=== PATIENT | male | born 1980 | race Caucasian/White ===

== ENCOUNTER 2019-08-27 00:40 | Day surgery (SDC) | payer MEDICARE, MEDICAID, SELFPAY ==
[2019-07-09 11:10] VITALS: BMI 31.4
[2019-08-24 15:42] VITALS: BMI 34.5
[2019-08-27 09:31] VITALS: BP 135/85; PULSE 60; RESP 18; TEMP 36.4; O2SAT 97
[2019-08-27] MEDS: LACTATED RINGERS 1,000 ML 150 ML IV CONT (09:49)
--- NOTE | 2019-08-27 09:57 | PM.IMHP ---
H&P: HPI History of Present Illness Chief complaint: Esophagitis Narrative: Erik Garvey is a 39 year old male presents for repeat EGD. He had EGD at [facility] 02/28/2020 and was found to have erosive esophagitis. He has been on PPI BID. He denies any acid reflux, heartburn, nausea, vomiting, dysphagia, or odynophagia. Denies any diarrhea, constipation, melena, hematochezia, abdominal pains or rectal pains. Denies abnormal weight loss, fever or chills. Denies family hx of GI maligancies. Review of Systems Review of Systems: All systems reviewed & are unremarkable except as noted in HPI and below [facility] Past Medical History Medical History (Updated 08/27/19 @ 10:02 by Heather Cruz, MUSSEL FARMER) Asthma Bed bug bite Bipolar 1 disorder Erosive esophagitis GERD (gastroesophageal reflux disease) Obesity Seizure Surgical History Surgical History (Updated 08/27/19 @ 10:02 by Heather Cruz, MUSSEL FARMER) Hx of esophagogastroduodenoscopy Family History Family History (Updated 08/27/19 @ 10:03 by Heather Cruz, MUSSEL FARMER) Unknown Malignant neoplasm of prostate Other Diabetes mellitus Sibling Diabetes mellitus Social History Social History (Updated 08/27/19 @ 10:05 by Heather Cruz, MUSSEL FARMER) Smoking packs per day: 1 Smoking cigarettes per day: 20.0 Years smoked: 23 Smoking pack-years: 23.00 Smoking status: Current every day smoker Tobacco type: cigarettes Alcohol intake: never Substance use: never Meds Home Medications and Allergies Home Medications Medication Instructions Recorded Confirmed Type albuterol sulfate 2 puff INHALATION BID-TID 07/09/19 07/09/19 History citalopram 40 mg PO DAILY 07/09/19 07/09/19 History clonazepam 1 mg PO BID 07/09/19 07/09/19 History fluticasone propion-salmeterol 1 puff INHALATION DAILY 07/09/19 07/09/19 History [Advair HFA] levetiracetam 500 mg PO BID 07/09/19 07/09/19 History omeprazole 40 mg PO BID 07/09/19 07/09/19 History trazodone 100 mg PO HS 07/09/19 07/09/19 History umeclidinium [Incruse Ellipta] 1 inh INHALATION PRN PRN 07/09/19 07/09/19 History risperidone 2 mg PO DAILY 08/24/19 08/24/19 History Allergies Allergy/AdvReac Type Severity Reaction Status Date / Time No Known Allergies Allergy Verified 08/27/19 09:29 Vital Signs Vital Signs - 24 hr 08/27/19 09:31 Temperature 36.4 C Pulse Rate 60 Respiratory Rate 18 Blood Pressure 135/85 Pulse Oximetry 97 Exam Const: General: cooperative, healthy appearing, comfortable, alert, awake and poor hygiene Nutritional Appearance: obese and overweight Orientation/consciousness: oriented to person, oriented to place, oriented to time and patient oriented x3 Limitations: no limitations HENMT: Head: normal to inspection and normocephalic Mouth: Yes Normal oral and palatal mucosa present and Yes moist mucous membranes Neck: Neck: normal visual inspection, supple and no JVD Carotids: no bruits Resp: Effort & Inspection: no respiratory distress Auscultation: wheezes and diminished lung sounds Cardio: Rate: regular rate Rhythm: regular rhythm Heart sounds: S1 normal heart sound present, S2 normal heart sound present, no gallops, no murmurs and no rubs GI: Inspection: normal to inspection and obesity GI Palp: No abdominal tenderness and No No hepatosplenomegaly present Percussion: Yes normal to percussion Auscultation: normal bowel sounds Rectal Exam: deferred Skin: General skin exam: normal color Lesions: no lesions and lesion noted (numerous lesions noted to bilateral lower extremities. ) Rashes: no rashes Neuro: General: oriented to person, oriented to place, oriented to time, patient oriented x3 and moves all extremities Cognition (Neuro): normal cognition Speech: normal speech Gait exam (Neuro): Normal gait present Extrem: General: normal to inspection Psych: Appearance: grossly normal Mental Status: mental status grossly normal Speech and movement: Normal speech and m
--- NOTE | 2019-08-27 10:25 | P.PNAN_ITS ---
Anes - Initial Pre Proc Eval Procedure: Operation Date: 08/27/19 10:30 Proposed Procedures p Esophagogastroduodenoscopy - Benito Moncada DO Date/Time: 08/27/19 10:25 Surgeon: Benito Moncada DO Pre Op Diagnosis: Esophagitis Patient Data Age: 39 Gender: M Height: 5 ft 7 in Weight: 110.5 kg Last Vital Signs Temp 97.6 F 08/27/19 09:31 Pulse 60 08/27/19 09:31 Resp 18 08/27/19 09:31 BP 135/85 08/27/19 09:31 Pulse Ox 97 08/27/19 09:31 Allergies Allergy/AdvReac Type Severity Reaction Status Date / Time No Known Allergies Allergy Verified 08/27/19 09:29 Home Medications Medication Instructions Recorded Confirmed Type albuterol sulfate 2 puff INHALATION BID-TID 07/09/19 07/09/19 History citalopram 40 mg PO DAILY 07/09/19 07/09/19 History clonazepam 1 mg PO BID 07/09/19 07/09/19 History fluticasone propion-salmeterol 1 puff INHALATION DAILY 07/09/19 07/09/19 History [Advair HFA] levetiracetam 500 mg PO BID 07/09/19 07/09/19 History omeprazole 40 mg PO BID 07/09/19 07/09/19 History trazodone 100 mg PO HS 07/09/19 07/09/19 History umeclidinium [Incruse Ellipta] 1 inh INHALATION PRN PRN 07/09/19 07/09/19 History risperidone 2 mg PO DAILY 08/24/19 08/24/19 History Patient hx anesthesia problems: none Family hx anesthesia problems: none PMFSH Past Medical History Medical History (Updated 08/27/19 @ 10:02 by Heather Cruz, ENTERPRISE APPLICATION DEVELOPER) Asthma Bed bug bite Bipolar 1 disorder Erosive esophagitis GERD (gastroesophageal reflux disease) Obesity Seizure Surgical History Surgical History (Updated 08/27/19 @ 10:02 by Heather Cruz, ENTERPRISE APPLICATION DEVELOPER) Hx of esophagogastroduodenoscopy Family History Family History (Updated 08/27/19 @ 10:03 by Heather Cruz, ENTERPRISE APPLICATION DEVELOPER) Unknown Malignant neoplasm of prostate Other Diabetes mellitus Sibling Diabetes mellitus Social History Social History (Updated 08/27/19 @ 10:05 by Heather Cruz, ENTERPRISE APPLICATION DEVELOPER) Smoking packs per day: 1 Smoking cigarettes per day: 20.0 Years smoked: 23 Smoking pack-years: 23.00 Smoking status: Current every day smoker Tobacco type: cigarettes Alcohol intake: never Substance use: never Anes - Eval Final PreProcedure Day of Procedure 08/27/19 10:25 Patient weight: obese Heart: regular rate and rhythm Lungs: clear to auscultation Airway: Mallampati scale class III Neurological: alert and oriented Last oral intake: >/= 8 hours ASA classification: III Emergent: no Anesthetic plan: proceed Anesthesia type and monitoring: general GIVS and standard monitoring Informed Consent: The patient's anesthetic plan and its attendant risks and benefits were discussed with the patient/family/POA. Questions were solicited and answers provided to the satisfaction of the patient/family/POA.
[2019-08-27 10:58] VITALS: BP 117/64; PULSE 76; RESP 20; O2SAT 93
[2019-08-27 11:08] VITALS: BP 114/71; PULSE 70; RESP 20; O2SAT 94
[2019-08-27 11:18] VITALS: BP 122/84; PULSE 64; RESP 18; O2SAT 96
== END 2019-08-27 11:35 | disposition home or self-care (01) ==
PROVIDERS: PCP Family Medicine; Visit Provider Internal Medicine Gastroenterology
PROC: 0DJ08ZZ Inspection of Upper Intestinal Tract, Via Natural or Artificial Opening Endoscopic (ICD-10-PCS; CPT 43235; principal; 2019-08-27 10:30)
DX: K21.0 Gastro-esophageal reflux disease with esophagitis (principal); B37.81 Candidal esophagitis; K44.9 Diaphragmatic hernia without obstruction or gangrene; J45.909 Unspecified asthma, uncomplicated; G40.909 Epilepsy, unspecified, not intractable, without status epilepticus; F31.9 Bipolar disorder, unspecified; E66.9 Obesity, unspecified; Z68.38 Body mass index [BMI] 38.0-38.9, adult; F17.210 Nicotine dependence, cigarettes, uncomplicated
CPT/HCPCS: 43239; 88305; J2704; J7120

== ENCOUNTER 2020-10-06 17:03 | Outpatient (CLI) | payer MEDICARE, MEDICAID, SELFPAY ==
--- NOTE | 2020-10-06 17:20 | ECG_ITS ---
Measurements Intervals [place] Rate: 95 P: 37 NM: 129 QRS: 75 QRSD: 95 T: 28 QT: 352 QTc: 443 Interpretive Statements SINUS RHYTHM DELAYED PRECORDIAL R/S TRANSITION MINIMAL Q WAVES- INFERIOR LEADS BORDERLINE T WAVE ABNORMALITY- INFERIOR LEADS BASELINE ARTIFACT- I, II, III, AVF, V6 BORDERLINE ECG Electronically Signed On 10-06-2020 18:00:56 CDT by Erick Tony D.O.
[2020-10-06 17:35] LABS: Hematocrit 43.8 % (40.0-54.0); Hemoglobin 14.8 g/dL (14.0-18.0); Immature Platelet Fraction Pct 15.7 % (1.0-7.0); Mean Corpuscular HGB Conc 33.8 g/dL (32.0-36.0); Mean Corpuscular Hemoglobin 28.2 pg (27.0-31.0); Mean Corpuscular Volume 83.4 fL (78.0-102.0); Mean Platelet Volume 13.3 fl (8.7-11.0); Platelet Count Result 201 K/mm3 (150-420); Red Blood Count 5.25 M/mm3 (4.70-6.10); Red Cell Distribution Width 13.1 % (11.6-14.4); White Blood Count 10.9 K/mm3 (4.8-10.8)
[2020-10-06 17:40] LABS: Hemoglobin A1C 5.3 % (<5.7)
[2020-10-06 17:45] LABS: Alanine Aminotransferase 22 U/L (16-63); Albumin Level 3.7 g/dL (3.4-5.0); Alkaline Phosphatase 113 U/L (46-116); Anion Gap 10 mmol/L (8-16); Aspartate Amino Transferase 12 U/L (15-37); Bilirubin,Total 0.4 mg/dL (0.00-1.00); Blood Urea Nitrogen 6 mg/dL (7-18); Calcium 8.8 mg/dL (8.5-10.1); Carbon Dioxide 27 mmol/L (21-32); Chloride 101 mmol/L (98-108); Cholesterol 171 mg/dL (0-200); Estimated Glomerular Filt Rate > 60; Glucose 110 mg/dL (70-99); HDL Direct 38 mg/dL (40-60); LDL Cholesterol Calculated 99 mg/dL (<130); Osmolality Calculated 284 mOsm/kg (285-295); Potassium 4.1 mmol/L (3.5-5.1); Sodium 138 mmol/L (136-145); Total Protein 7.5 g/dL (6.4-8.2); Triglycerides 171 mg/dL (0-150)
[2020-10-06 18:23] LABS: Total Cells Counted 100
[2020-10-06 18:24] LABS: Eosinophils Absolute Manual 1.09 K/mm3 (0.02-0.5); Eosinophils Percent Manual 10 % (1-6); Lymphocytes Percent Manual 23 % (18-44); Monocytes Absolute Manual 0.43 K/mm3 (0.1-0.90); Monocytes Percent Manual 4 % (3-9); Neutrophils Percent Manual 63 % (46-73)
[2020-10-06 18:27] LABS: Platelet Estimate Adequate (Adequate)
== END 2020-10-06 17:04 | disposition home or self-care (01) ==
LOC: CHSLAB 17:07
PROVIDERS: PCP Family Medicine; Visit Provider Psychiatry & Neurology Psychiatry
DX: Z79.899 Other long term (current) drug therapy (principal)
CPT/HCPCS: 36415; 80053; 80061; 83036; 85025; 85055; 93005

== ENCOUNTER 2021-09-14 16:58 | Outpatient (CLI) | payer MEDICARE, MEDICAID, SELFPAY ==
--- NOTE | ~2021-09-14 | XR_ITS ---
XR chest 2V 09/14/2021 17:50 Indication: Right-sided chest pain for 3 days Procedure: PA and lateral views of the chest Comparison: 03/18/2018 Findings: Right perihilar and basilar airspace disease. Small right pleural effusion. There is a hiat al hernia. Heart size normal. Left lung clear. There is a possible mass in the lower lung posteriorly on the lateral view overlying the spine. Alternatively this could represent loculated effusion. Impression: 1: Right perihilar and basilar airspace disease, suspicious for pneumonia. 2: Possible lower thoracic mass posteriorly seen on lateral view only. Recommend correlation with est CT. 3: Large hiatal hernia. Reviewed, dictated and finalized at location A. ICATIONS SALES CONSULTANT Impression: 1: Right perihilar and basilar airspace disease, suspicious for pneumonia. 2: Possible lower thoracic mass posteriorly seen on lateral view only. Recomme nd correlation with chest CT. 3: Large hiatal hernia.
[2021-09-14 17:16] LABS: Hematocrit 36.5 % (40.0-54.0); Immature Platelet Fraction Pct 5.9 % (1.0-7.0); Mean Corpuscular HGB Conc 32.9 g/dL (32.0-36.0); Mean Corpuscular Hemoglobin 27.3 pg (27.0-31.0); Platelet Count Result 400 K/mm3 (150-420); Red Cell Distribution Width 13.7 % (11.6-14.4)
[2021-09-14 17:26] LABS: White Blood Count 23.5 K/mm3 (4.8-10.8)
[2021-09-14 17:29] LABS: Alanine Aminotransferase 20 U/L (16-63); Albumin Level 2.4 g/dL (3.4-5.0); Alkaline Phosphatase 175 U/L (46-116); Anion Gap 13 mmol/L (8-16); Aspartate Amino Transferase 13 U/L (15-37); Bilirubin,Total 0.5 mg/dL (0.00-1.00); Blood Urea Nitrogen 5 mg/dL (7-18); Calcium 8.6 mg/dL (8.5-10.1); Carbon Dioxide 26 mmol/L (21-32); Chloride 99 mmol/L (98-108); Estimated Glomerular Filt Rate > 60; Glucose 97 mg/dL (70-99); Osmolality Calculated 283 mOsm/kg (285-295); Potassium 3.2 mmol/L (3.5-5.1); Sodium 138 mmol/L (136-145); Total Protein 7.8 g/dL (6.4-8.2)
[2021-09-14 17:46] LABS: Band Neutrophils Percent 0 % (0-6); Basophils Percent Manual 0 % (0-1); Eosinophils Absolute Manual 0.47 K/mm3 (0.02-0.5); Eosinophils Percent Manual 2 % (1-6); Lymphocytes Absolute Manual 1.17 K/mm3 (1.1-4.5); Lymphocytes Percent Manual 5 % (18-44); Monocytes Absolute Manual 0.47 K/mm3 (0.1-0.90); Monocytes Percent Manual 2 % (3-9); Neutrophils Absolute Manual 21.38 K/mm3 (1.3-6.7); Neutrophils Percent Manual 91 % (46-73); Platelet Estimate Adequate (Adequate); Total Cells Counted 100
== END 2021-09-14 16:59 | disposition home or self-care (01) ==
LOC: CHSLAB 17:03
PROVIDERS: PCP Family Medicine; Visit Provider Family Medicine
DX: R07.9 Chest pain, unspecified (principal)
CPT/HCPCS: 36415; 71046; 80053; 85025; 85055

== ENCOUNTER 2021-09-15 14:13 | Emergency (ER) | payer MEDICARE, MEDICAID, SELFPAY ==
--- NOTE | ~2021-09-15 | CT_ITS ---
EXAMINATION: CT abdomen pelvis w con DATE: 09/15/2021 16:21 INDICATION: Right abdominal pain. TECHNIQUE: Computed tomography (CT) of the abdomen and pelvis was performed with 100 mL Omnipaque 350 intravenous contrast. Automated exposure control and iterative reconstruction technique were employe d. The dose-length product was 1483.12 mGy-cm. COMPARISON: Chest CT 09/03/2018 FINDINGS: The visualized portions of the lung bases demonstrate a thick-walled cavitary 4.4 x 3.7 cm mass in right lung lower lobe with air/fluid level. There is a moderate-sized loculated right pleural effusion. The heart size is normal. There is a small pericardial effusion. There is a large sliding hiatal hernia. There is mild periesophageal lymphadenopathy. The liver and spleen are normal. There i s a gallstone in the gallbladder, which is normal in size. The pancreas, adrenal glands, and kidneys are normal. There is diverticulosis of the colon without evidence of diverticulitis. The appendix is normal. There are no pathologically enlarged lymph nodes. There is no free intraperitoneal fluid. The re are chronic bilateral L5 pars defects. There is 7 mm anterolisthesis of L5 on S1. IMPRESSION: 1. Cavitary mass in right lung lower lobe, most likely an abscess. Malignancy cannot be excluded. 2. Moderate-sized loculated right pleural effusion. 3. Mild paraesophageal lymphadenopathy. 4. Large sliding hiatal hernia. Reviewed, dictated and finalized at location A. CE EXECUTIVE IMPRESSION: 1. Cavitary mass in right lung lower lobe, most likely an abscess. Malignancy c annot be excluded. 2. Moderate-sized loculated right pleural effusion. 3. Mild paraesophageal lymphadenopathy. 4. Large sliding hiatal hernia.
[2021-09-15 14:45] VITALS: BP 111/69; PULSE 116; RESP 20; O2SAT 94
--- NOTE | 2021-09-15 15:14 | ECG_ITS ---
Measurements Intervals [place] Rate: 115 P: -1 VA: 120 QRS: 84 QRSD: 85 T: 21 QT: 349 QTc: 484 Interpretive Statements SINUS TACHYCARDIA NONSPECIFIC T-WAVE ABNORMALITY ABNORMAL RHYTHM ECG COMPARED TO ECG 10/06/2020 17:22:28 [address]CARDIA NOW PRESENT ST (T WAVE) DEVIATION NOW PRESENT Electronically Signed On 09-15-2021 16:05:40 VIDEO GAME CREATOR by Gilbert Granger M.D.
[2021-09-15 15:38] LABS: Hematocrit 35.6 % (40.0-54.0); Immature Platelet Fraction Pct 6.3 % (1.0-7.0); Mean Corpuscular HGB Conc 33.7 g/dL (32.0-36.0); Mean Corpuscular Hemoglobin 27.8 pg (27.0-31.0); Mean Corpuscular Volume 82.4 fL (78.0-102.0); Platelet Count Result 443 K/mm3 (150-420); Red Blood Count 4.32 M/mm3 (4.70-6.10); Red Cell Distribution Width 13.7 % (11.6-14.4)
[2021-09-15 15:39] LABS: White Blood Count 46.2 K/mm3 (4.8-10.8)
[2021-09-15 15:51] LABS: INR 1.3
[2021-09-15 15:54] LABS: Alanine Aminotransferase 17 U/L (16-63); Albumin Level 2.1 g/dL (3.4-5.0); Alkaline Phosphatase 148 U/L (46-116); Anion Gap 13 mmol/L (8-16); Aspartate Amino Transferase 12 U/L (15-37); Bilirubin,Total 0.7 mg/dL (0.00-1.00); Blood Urea Nitrogen 11 mg/dL (7-18); Calcium 8.3 mg/dL (8.5-10.1); Carbon Dioxide 27 mmol/L (21-32); Chloride 93 mmol/L (98-108); Estimated CRCL calculation 57 ml/min; Estimated Glomerular Filt Rate 40; Glucose 106 mg/dL (70-99); Lipase 24 U/L (73-393); Osmolality Calculated 275 mOsm/kg (285-295); Potassium 3.2 mmol/L (3.5-5.1); Sodium 133 mmol/L (136-145); Total Protein 7.1 g/dL (6.4-8.2)
[2021-09-15] MEDS: ALBUTEROL SULFATE (*SP) INHALER 2 PUFF INHALATION (15:55)
[2021-09-15 15:56] VITALS: PULSE 116; RESP 20; O2SAT 20
[2021-09-15 15:58] LABS: Band Neutrophils Percent 3 % (0-6); Basophils Percent Manual 0 % (0-1); Eosinophils Absolute Manual 0.92 K/mm3 (0.02-0.5); Eosinophils Percent Manual 2 % (1-6); Lymphocytes Absolute Manual 1.84 K/mm3 (1.1-4.5); Lymphocytes Percent Manual 4 % (18-44); Metamyelocytes Percent 1 %; Monocytes Absolute Manual 0.92 K/mm3 (0.1-0.90); Monocytes Percent Manual 2 % (3-9); Myelocytes Percent 1 %; Neutrophils Absolute Manual 41.58 K/mm3 (1.3-6.7); Neutrophils Percent Manual 87 % (46-73); Platelet Estimate Adequate (Adequate); Total Cells Counted 100
[2021-09-15] MEDS: fentaNYL CITRATE INJ (*CRX) 100 MCG/2 ML VIAL 50 MCG IV PUSH (15:58)
[2021-09-15] MEDS: SODIUM CHLORIDE 0.9% IV 500 ML 125 ML IV CONT (15:59)
[2021-09-15] MEDS: ONDANSETRON INJ 4 MG/2 ML VIAL IV PUSH (15:59)
[2021-09-15] MEDS: PANTOPRAZOLE SODIUM IV 40 MG VIAL IV PUSH (16:00)
[2021-09-15 16:02] LABS: Lactic Acid Reflex 2.4 mmol/L (0.4-2.0)
[2021-09-15 16:12] LABS: Influenza A QL RT-PCR Negative (Negative); Influenza B QL RT-PCR Negative (Negative); SARS-CoV-2 RNA PCR Negative (Negative)
--- NOTE | 2021-09-15 16:56 | ED.ABDPAIN ---
HPI - Abdominal Pain General Chief Complaint: Abdominal Pain Stated Complaint: Side pain/ Shoulder pain Time Seen by Provider: 09/15/21 14:15 Source: patient, family and RN notes reviewed Mode of arrival: ambulatory Limitations: no limitations History of Present Illness MD elicited complaint: abdominal pain and other (mild chronic wheezing ) Onset (ago): day(s) (2) Pain Consistency: constant Location: RUQ Severity: mild Pain scale (0-10): 4 Quality: aching and dull Radiation: none Migration to: no migration Exacerbating factors: nothing Relieving factors: nothing Treatments prior to arrival: other (none.) Related Data Home Medications Medication Instructions Recorded Confirmed albuterol sulfate 2 puff INHALATION BID-TID 07/09/19 09/15/21 citalopram 40 mg PO DAILY 07/09/19 09/15/21 clonazepam 1 mg PO BID 07/09/19 09/15/21 fluticasone propion-salmeterol 1 puff INHALATION DAILY 07/09/19 09/15/21 [Advair HFA] levetiracetam 500 mg PO BID 07/09/19 09/15/21 omeprazole 40 mg PO BID 07/09/19 09/15/21 trazodone 100 mg PO HS 07/09/19 09/15/21 umeclidinium [Incruse Ellipta] 1 inh INHALATION PRN PRN 07/09/19 09/15/21 risperidone 2 mg PO DAILY 08/24/19 09/15/21 Allergies Allergy/AdvReac Type Severity Reaction Status Date / Time No Known Allergies Allergy Verified 08/27/19 09:29 Review of Systems Review of Systems: All systems reviewed & are unremarkable except as noted in HPI and below PMFSH Past Medical History Medical History Asthma Bed bug bite Bipolar 1 disorder Erosive esophagitis GERD (gastroesophageal reflux disease) Obesity RUQ abdominal pain Seizure Surgical History Surgical History Hx of esophagogastroduodenoscopy Family History Family History Unknown Malignant neoplasm of prostate Other Diabetes mellitus Sibling Diabetes mellitus Social History Social History Smoking packs per day: 1 Smoking cigarettes per day: 20.0 Years smoked: 23 Smoking pack-years: 23.00 Smoking status: Current every day smoker Tobacco type: cigarettes Alcohol intake: never Substance use: never Exam Const: General: no acute distress and alert Nutritional Appearance: obese Orientation/consciousness: patient oriented x3 Limitations: no limitations HENMT: Head: normal to inspection Ears: external ears normal, TM's normal bilaterally and EAC's normal General nose exam: Normal external nose present and Normal nares present Face and sinus: normal facial exam and sinuses nontender Mouth: Yes lip normal and Yes moist mucous membranes Teeth and gingiva: dentition normal Eyes: Conjunctivae: conjunctivae normal Pupils: Equal, round and reactive pupils present EOM: EOMs intact bilaterally Neck: Neck: normal visual inspection Chest: Chest palpation & inspection: normal inspection of the chest Resp: Effort & Inspection: normal respiratory effort Auscultation: rhonchi and wheezes Cardio: Rate: regular rate Rhythm: regular rhythm GI: GI Palp: Yes Soft to palpation and No Tenderness to palpation present (GI) Auscultation: normal bowel sounds : General: Yes no CVA tenderness Male General Exam: Yes normal external exam Back/Spine/Pelvis: Back: no CVA tenderness Skin: General skin exam: normal color Neuro: General: patient oriented x3, moves all extremities, no meningeal signs, no focal motor deficits and CN's II-XI intact bilaterally Extrem: General: normal to inspection and no pedal edema Psych: Appearance: grossly normal Mental Status: mental status grossly normal Affect: normal affect Attitude: cooperative Thought content: Yes Normal thought content present Course Course Emergency Course: pt was stable and pain-free in the ED. Reevaluation(s) Reevaluation #1:
[2021-09-15] MEDS: SODIUM CHLORIDE 0.9% IV 1,000 ML 999 ML IV CONT (17:00)
[2021-09-15 17:12] LABS: Appearance Urine Clear (Clear); Bilirubin Urine 1+ (Negative); Color Urine Dark Yellow (Yellow); Glucose Urine UA Negative (Negative); Ketones Urine Negative (Negative); Leukocyte Esterase Ur Negative LEU/UL (Negative); Nitrate Urine Negative (Negative); Protein Urine Negative (Negative); pH Urine 5.5 (5.0-8.0)
[2021-09-15 17:13] LABS: Add Urine Microscopic? YES; Blood Urine Trace-lysed (Negative)
[2021-09-15 17:16] LABS: Bacteria Urine Trace /hpf; RBC Urine None seen /hpf (0-2); Renal Epithelial Cells Urine Few /hpf; Squamous Epithelial Cell Urine Few /hpf (Few); WBC Urine None seen /hpf (0-3)
--- NOTE | 2021-09-15 17:22 | PC.NURSE ---
PT WANTING TO GO HOME AND DECIDE WHETHER OR NOT GO TO [facility] TOMORROW. DR KOLB IN WITH PT DISCUSSING CARE.
[2021-09-15] MEDS: CALCIUM CARBONATE (TUMS) 500 MG (200 MG ELEMENTAL) 1000 MG PO (17:39)
[2021-09-15] MEDS: POTASSIUM CHLORIDE 20 MEQ TABLET 40 MEQ PO (17:40)
[2021-09-15 18:13] VITALS: BP 118/75; PULSE 98; RESP 20; TEMP 36.9; O2SAT 94
[2021-09-15 18:32] LABS: Reflex Lactic Acid Yes or No Add Lactic
== END 2021-09-15 18:00 | disposition home or self-care (01) ==
PROVIDERS: Emergency Provider Emergency Medicine; PCP Family Medicine
DX: J85.1 Abscess of lung with pneumonia (principal); D72.829 Elevated white blood cell count, unspecified; Z20.822 Contact with and (suspected) exposure to COVID-19
CPT/HCPCS: 36415; 74177; 80053; 81001; 83605; 83690; 84484; 85025; 85055; 85610; 85730; 87040; 87502; 93005; 94640; 96361; 96365; 96375; 99284; A9270; C9113; C9803; J0696; J2405; J3010; J7030; J7040; Q9967; U0003; U0005

== ENCOUNTER 2021-09-18 12:00 | Outpatient (CLI) | payer MEDICARE, MEDICAID, SELFPAY ==
--- NOTE | ~2021-09-18 | XR_ITS ---
EXAMINATION: XR chest 2V EXAM DATE: 09/18/2021 12:24 INDICATION: RIGHT LUNG ABSCESS F/U . TECHNIQUE: Frontal and lateral projections of the chest obtained and reviewed. Comparison is made to prior examination from 09/14/2021, and correlation made to CT scan from 09/15. FINDINGS: Development of lobular right pleural effusion/empyema as in the mid and upper lung zone. T his measures up to about 4 cm in thickness. On the lateral projection there is also loculated fluid i n the major fissure measuring about 3 mm in thickness. The right lower lobe cavitary region more likely abscess than malignancy is identified on the lateral projection with air-fluid level. Left lung is clear. There is moderate-sized gastroesophageal hiatal hernia. Mildly large cardiac silhouette, but portion of this is certainly be loculated pleural fluid correlating with recent CT. IMPRESSION: 1. Progression in size of multiloculated right pleural effusion and/or empyemas. 2. Right lower lobe cavitary region, abscess or less likely malignancy. 3. Moderate hiatal hernia. Reviewed, dictated and finalized at location A. CAL RECEPTION IMPRESSION: 1. Progression in size of multiloculated right pleural effusion and/or empyema s. 2. Right lower lobe cavitary region, abscess or less likely malignancy. 3. Moderate hiatal hernia.
[2021-09-18 12:29] LABS: Hematocrit 33.4 % (40.0-54.0); Mean Corpuscular HGB Conc 32.9 g/dL (32.0-36.0); Mean Corpuscular Hemoglobin 27.2 pg (27.0-31.0); Mean Corpuscular Volume 82.7 fL (78.0-102.0); Mean Platelet Volume 10.4 fl (8.7-11.0); Platelet Count Result 550 K/mm3 (150-420); Red Blood Count 4.04 M/mm3 (4.70-6.10); Red Cell Distribution Width 14.5 % (11.6-14.4)
[2021-09-18 12:30] LABS: White Blood Count 34.7 K/mm3 (4.8-10.8)
[2021-09-18 12:31] LABS: Band Neutrophils Percent 0 % (0-6); Lymphocytes Absolute Manual 2.08 K/mm3 (1.1-4.5); Lymphocytes Percent Manual 6 % (18-44); Monocytes Absolute Manual 2.42 K/mm3 (0.1-0.90); Monocytes Percent Manual 7 % (3-9); Neutrophils Absolute Manual 30.18 K/mm3 (1.3-6.7); Neutrophils Percent Manual 87 % (46-73); Total Cells Counted 100
[2021-09-18 12:32] LABS: Platelet Estimate Increased (Adequate)
[2021-09-18 12:34] LABS: Alanine Aminotransferase 12 U/L (16-63); Albumin Level 1.9 g/dL (3.4-5.0); Alkaline Phosphatase 229 U/L (46-116); Anion Gap 10 mmol/L (8-16); Aspartate Amino Transferase 12 U/L (15-37); Bilirubin,Total 0.4 mg/dL (0.00-1.00); Blood Urea Nitrogen 11 mg/dL (7-18); Calcium 8.8 mg/dL (8.5-10.1); Carbon Dioxide 27 mmol/L (21-32); Chloride 98 mmol/L (98-108); Estimated Glomerular Filt Rate > 60; Glucose 99 mg/dL (70-99); Osmolality Calculated 279 mOsm/kg (285-295); Potassium 4.1 mmol/L (3.5-5.1); Sodium 135 mmol/L (136-145); Total Protein 7.7 g/dL (6.4-8.2)
== END 2021-09-18 12:01 | disposition home or self-care (01) ==
LOC: CHSLAB 12:03
PROVIDERS: PCP Family Medicine; Visit Provider Family Medicine
DX: J85.2 Abscess of lung without pneumonia (principal)
CPT/HCPCS: 36415; 71046; 80053; 85025; 87040

== ENCOUNTER 2021-09-28 14:23 | Outpatient (CLI) | payer MEDICARE, MEDICAID, SELFPAY ==
--- NOTE | ~2021-09-28 | XR_ITS ---
EXAMINATION: XR chest 2V DATE: 09/28/2021 14:46 INDICATION: Abscess of lung without pneumonia TECHNIQUE: frontal and lateral views of the chest were obtained. COMPARISON: Chest radiograph dated 09/18/2021 FINDINGS: Interval decrease in size of a small right pleural effusion with persistent blunting at the costophre mary angle and posterior sulcus and decrease in thickness of the fluid tracking along the major fissur e. Lenticular collection of loculated pleural fluid along the lateral right mid to upper lung has ess entially resolved. Mild streaky atelectasis in the right lower lung zone. No other airspace opacities , pulmonary edema, pneumothorax or pleural effusion. Heart size is normal. Moderate-sized hiatal annita ia. Chronic mild anterior wedging at T11. IMPRESSION: 1. Significant decrease in size of a now very small right pleural effusion. 2. Streaky opacities in the right lower lung zones which could represent atelectasis or pneumonia. 3. Moderate-sized hiatal hernia. Reviewed, dictated and finalized at location A. IMPRESSION: 1. Significant decrease in size of a now very small right pleural effusion. 2. Streaky opacities in the right lower lung zones which could represent atelec tasis or pneumonia. 3. Moderate-sized hiatal hernia.
[2021-09-28 14:38] LABS: Appearance Urine Clear (Clear); Bilirubin Urine Negative (Negative); Color Urine Light Yellow (Yellow); Glucose Urine UA Negative (Negative); Ketones Urine Negative (Negative); Leukocyte Esterase Ur Trace (Negative); Nitrate Urine Negative (Negative); Protein Urine Negative (Negative); Urobilinogen Urine 0.2 mg/dL (0.2-1.0); pH Urine 6.5 (5.0-8.0)
[2021-09-28 14:39] LABS: Hematocrit 29.1 % (40.0-54.0); Hemoglobin 9.4 g/dL (14.0-18.0); Immature Platelet Fraction Pct 3.3 % (1.0-7.0); Mean Corpuscular HGB Conc 32.3 g/dL (32.0-36.0); Mean Corpuscular Hemoglobin 27.2 pg (27.0-31.0); Mean Corpuscular Volume 84.1 fL (78.0-102.0); Mean Platelet Volume 10.4 fl (8.7-11.0); Platelet Count Result 523 K/mm3 (150-420); Red Blood Count 3.46 M/mm3 (4.70-6.10); Red Cell Distribution Width 15.9 % (11.6-14.4); White Blood Count 14.6 K/mm3 (4.8-10.8)
[2021-09-28 14:44] LABS: Add Urine Microscopic? YES; Bacteria Urine Trace /hpf; Blood Urine Trace-lysed (Negative); RBC Urine None seen /hpf (0-2); Squamous Epithelial Cell Urine Rare /hpf (Few); WBC Urine None seen /hpf (0-3)
[2021-09-28 15:28] LABS: Band Neutrophils Percent 0 % (0-6); Basophils Percent Manual 0 % (0-1); Eosinophils Absolute Manual 0.87 K/mm3 (0.02-0.5); Eosinophils Percent Manual 6 % (1-6); Lymphocytes Absolute Manual 2.33 K/mm3 (1.1-4.5); Lymphocytes Percent Manual 16 % (18-44); Monocytes Absolute Manual 0.58 K/mm3 (0.1-0.90); Monocytes Percent Manual 4 % (3-9); Neutrophils Percent Manual 74 % (46-73); Platelet Estimate Increased (Adequate); Total Cells Counted 100
[2021-09-28 15:29] LABS: Anion Gap 9 mmol/L (8-16); Blood Urea Nitrogen 7 mg/dL (7-18); Calcium 7.3 mg/dL (8.5-10.1); Carbon Dioxide 26 mmol/L (21-32); Chloride 104 mmol/L (98-108); Estimated Glomerular Filt Rate 26; Glucose 69 mg/dL (70-99); Osmolality Calculated 284 mOsm/kg (285-295); Potassium 3.9 mmol/L (3.5-5.1); Sodium 139 mmol/L (136-145)
== END 2021-09-28 14:24 | disposition home or self-care (01) ==
LOC: CHSLAB 14:26
PROVIDERS: PCP Family Medicine; Visit Provider Family Medicine
DX: N17.9 Acute kidney failure, unspecified (principal); J85.2 Abscess of lung without pneumonia
CPT/HCPCS: 36415; 71046; 80048; 81001; 85025; 85055

== ENCOUNTER 2021-10-17 09:43 | Outpatient (CLI) | payer MEDICARE, MEDICAID, SELFPAY ==
--- NOTE | ~2021-10-17 | XR_ITS ---
EXAMINATION: XR ribs LT 2V w CXR 2V DATE: 10/17/2021 10:17 INDICATION: Left chest pain. Fall. TECHNIQUE: Frontal and lateral views of the chest and 2 views on 3 radiographs of the left ribs were obtained. COMPARISON: Chest 2 views 09/28/2021, chest CT 09/03/2018 FINDINGS: CHEST TWO VIEWS: There is mild atelectasis in the lower lung zones. There is a small left pleural eff usion. No pneumothorax. The heart size is normal. There is a moderate-sized hiatal hernia. 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 LEFT RIBS: There are fractures of left fourth and fifth ribs. IMPRESSION: 1. Acute fractures of left fourth and fifth ribs. 2. Moderate-sized hiatal hernia. 3. Mild atelectasis in the lower lung zones. 4. Small left pleural effusion. Reviewed, dictated and finalized at location A.
== END 2021-10-17 09:44 | disposition home or self-care (01) ==
LOC: CHSIMG 09:45
PROVIDERS: PCP Family Medicine; Visit Provider Family Medicine
DX: R07.9 Chest pain, unspecified (principal)
CPT/HCPCS: 71046; 71100

== ENCOUNTER 2022-04-02 14:09 | Outpatient (CLI) | payer MEDICARE, MEDICAID, SELFPAY ==
--- NOTE | ~2022-04-02 | XR_ITS ---
XR chest 2V DATE: 04/02/2022 14:27 INDICATION: Moderate persistent asthma TECHNIQUE: 2 views COMPARISON: 10/17/2021 PA and lateral chest FINDINGS: Normal heart size. There is evidence of a hiatal hernia. No pulmonary vascular congestion o r pulmonary infiltrate or consolidation is detected. Resolution of small pleural effusions since 2021. Callus associated with anterior left third through fifth rib fractures are suggested. There is osteop enia. IMPRESSION: No active cardiopulmonary disease Hiatal hernia Osteopenia Probable healing or healed left rib fractures Resolution of small pleural effusions since 10/17/2021 Reviewed, dictated and finalized at location B.
[2022-04-02 14:26] LABS: Basophils Absolute Auto 0.02 K/mm3 (0.00-0.10); Basophils Percent Auto 0.2 % (0.0-1.0); Eosinophils Percent Auto 2.1 % (1.0-6.0); Hematocrit 39.9 % (40.0-54.0); Hemoglobin 13.2 g/dL (14.0-18.0); Immature Granulocyte Absolute 0.03 K/mm3 (0.00-0.00); Immature Granulocyte Percent A 0.3 % (0.0-0.0); Immature Reticulocyte Fraction 10.8 % (2.0-16.52); Lymphocytes Absolute Auto 1.87 K/mm3 (1.10-4.50); Lymphocytes Percent Auto 19.3 % (18.0-42.0); Mean Corpuscular HGB Conc 33.1 g/dL (32.0-36.0); Mean Corpuscular Hemoglobin 28.4 pg (27.0-31.0); Mean Platelet Volume 11.7 fl (8.7-11.0); Monocytes Absolute Auto 0.69 K/mm3 (0.10-0.90); Monocytes Percent Auto 7.1 % (2.0-11.0); Neutrophils Absolute Auto 6.9 K/mm3 (1.7-7.2); Platelet Count Result 230 K/mm3 (150-420); Red Blood Count 4.64 M/mm3 (4.70-6.10); Red Cell Distribution Width 14.6 % (11.6-14.4); Reticulocyte Hemoglobin Conten 31.5 pg (28.0-35.0); Reticulocyte Percent 0.96 % (0.50-1.50); Reticulocytes Absolute 0.04 M/mm3 (0.02-0.1); White Blood Count 9.7 K/mm3 (4.8-10.8)
[2022-04-02 15:45] LABS: Alanine Aminotransferase 18 U/L (16-63); Albumin Level 3.3 g/dL (3.4-5.0); Alkaline Phosphatase 113 U/L (46-116); Anion Gap 6 mmol/L (8-16); Aspartate Amino Transferase 15 U/L (15-37); Bilirubin,Total 0.3 mg/dL (0.00-1.00); Blood Urea Nitrogen 4 mg/dL (7-18); Calcium 8.7 mg/dL (8.5-10.1); Carbon Dioxide 31 mmol/L (21-32); Chloride 100 mmol/L (98-108); Estimated Glomerular Filt Rate > 60; Ferritin 56 ng/mL (26-388); Glucose 83 mg/dL (70-99); Iron 81 ug/dL (65-175); Osmolality Calculated 279 mOsm/kg (285-295); Percent Iron Saturation 28 % (12-57); Potassium 3.9 mmol/L (3.5-5.1); Sodium 137 mmol/L (136-145); Total Protein 7.3 g/dL (6.4-8.2)
[2022-04-04 17:17] LABS: Vitamin D 25 Hydroxy 21 ng/mL (30-100)
[2022-04-06 08:46] LABS: Ionized Calcium 4.9 mg/dL (4.8-5.6)
== END 2022-04-02 14:10 | disposition home or self-care (01) ==
LOC: CHSLAB 14:10
PROVIDERS: PCP Family Medicine; Visit Provider Family Medicine
DX: E55.9 Vitamin D deficiency, unspecified (principal); D50.9 Iron deficiency anemia, unspecified; J45.40 Moderate persistent asthma, uncomplicated
CPT/HCPCS: 36415; 71046; 80053; 82306; 82330; 82728; 83540; 83550; 85025; 85046

== ENCOUNTER 2022-07-13 08:59 | Outpatient (CLI) | payer MEDICARE, MEDICAID, SELFPAY | END 2022-07-13 09:00 | disposition home or self-care (01) | LOC: CHSCARD 09:01 | PROVIDERS: PCP Family Medicine; Visit Provider Family Medicine | DX: J45.40 Moderate persistent asthma, uncomplicated (principal) | CPT/HCPCS: 99199 ==

== ENCOUNTER 2022-07-24 10:02 | Outpatient (CLI) | payer MEDICARE, SELFPAY | END 2022-07-24 10:03 | disposition home or self-care (01) | PROVIDERS: PCP Family Medicine; Visit Provider Family Medicine | DX: J45.40 Moderate persistent asthma, uncomplicated (principal) | CPT/HCPCS: 94060; 94726; 94729 ==

== ENCOUNTER 2022-11-23 12:38 | Outpatient (CLI) | payer MEDICARE, SELFPAY ==
[2022-11-23 13:06] LABS: Appearance Urine Clear (Clear); Basophils Absolute Auto 0.02 K/mm3 (0.00-0.10); Basophils Percent Auto 0.2 % (0.0-1.0); Bilirubin Urine Negative (Negative); Blood Urine Negative (Negative); Color Urine Light Yellow (Yellow); Eosinophils Absolute Auto 0.51 K/mm3 (0.02-0.50); Eosinophils Percent Auto 6.2 % (1.0-6.0); Glucose Urine UA Negative (Negative); Hematocrit 41.3 % (40.0-54.0); Hemoglobin 13.6 g/dL (14.0-18.0); Immature Granulocyte Absolute 0.03 K/mm3 (0.00-0.00); Immature Granulocyte Percent A 0.4 % (0.0-0.0); Ketones Urine Negative (Negative); Leukocyte Esterase Ur Negative (Negative); Lymphocytes Absolute Auto 1.56 K/mm3 (1.10-4.50); Lymphocytes Percent Auto 18.9 % (18.0-42.0); Mean Corpuscular HGB Conc 32.9 g/dL (32.0-36.0); Mean Corpuscular Hemoglobin 29.6 pg (27.0-31.0); Mean Platelet Volume 11.8 fl (8.7-11.0); Monocytes Absolute Auto 0.72 K/mm3 (0.10-0.90); Monocytes Percent Auto 8.7 % (2.0-11.0); Neutrophils Absolute Auto 5.4 K/mm3 (1.7-7.2); Neutrophils Percent Auto 65.6 % (50.0-70.0); Nitrate Urine Negative (Negative); Platelet Count Result 219 K/mm3 (150-420); Protein Urine Negative (Negative); Red Blood Count 4.59 M/mm3 (4.70-6.10); Red Cell Distribution Width 13.2 % (11.6-14.4); Specific Grav Ur <= 1.005 (1.010-1.020); Urobilinogen Urine 0.2 mg/dL (0.2-1.0); White Blood Count 8.3 K/mm3 (4.8-10.8)
[2022-11-23 13:16] LABS: Add Urine Microscopic? NO; Creatinine Urine 45.17 mg/dL (40-278); MALB Creatinine Ratio 28.7 mg/g (0-30); Microalbumin Urine Random < 13.0 mg/L
[2022-11-23 13:51] LABS: CRP 2.5 mg/dL (0.0-0.9); Creatine Kinase 242 U/L (39-308); Magnesium 1.7 mg/dL (1.8-2.4); Thyroid Stimulating Hormone 0.79 uIU/mL (0.36-3.74)
[2022-11-23 14:09] LABS: Erythrocyte Sedimentation Rate 32 mm/hr (0-15)
[2022-11-27 21:10] LABS: Ionized Calcium 4.9 mg/dL (4.7-5.5)
[2022-11-29 14:17] LABS: ANCA Screen Negative (Negative)
== END 2022-11-23 12:39 | disposition home or self-care (01) ==
LOC: CHSLAB 12:41
PROVIDERS: PCP Family Medicine; Visit Provider Family Medicine
DX: D64.9 Anemia, unspecified (principal); E83.51 Hypocalcemia; R25.2 Cramp and spasm
CPT/HCPCS: 36415; 81003; 82043; 82330; 82550; 83735; 84443; 85025; 85652; 86036; 86038; 86140

== ENCOUNTER 2023-02-13 18:54 | Outpatient (CLI) | payer MEDICARE, SELFPAY ==
[2023-02-13 19:20] LABS: Basophils Absolute Auto 0.04 K/mm3 (0.00-0.10); Basophils Percent Auto 0.4 % (0.0-1.0); Eosinophils Absolute Auto 0.25 K/mm3 (0.02-0.50); Eosinophils Percent Auto 2.7 % (1.0-6.0); Hematocrit 42.3 % (40.0-54.0); Hemoglobin 14.1 g/dL (14.0-18.0); Immature Granulocyte Absolute 0.02 K/mm3 (0.00-0.00); Immature Granulocyte Percent A 0.2 % (0.0-0.0); Lymphocytes Absolute Auto 1.71 K/mm3 (1.10-4.50); Lymphocytes Percent Auto 18.2 % (18.0-42.0); Mean Corpuscular HGB Conc 33.3 g/dL (32.0-36.0); Mean Corpuscular Volume 86.9 fL (78.0-102.0); Mean Platelet Volume 12.4 fl (8.7-11.0); Monocytes Absolute Auto 0.59 K/mm3 (0.10-0.90); Monocytes Percent Auto 6.3 % (2.0-11.0); Neutrophils Absolute Auto 6.8 K/mm3 (1.7-7.2); Neutrophils Percent Auto 72.2 % (50.0-70.0); Platelet Count Result 204 K/mm3 (150-420); Red Blood Count 4.87 M/mm3 (4.70-6.10); Red Cell Distribution Width 12.7 % (11.6-14.4); White Blood Count 9.4 K/mm3 (4.8-10.8)
[2023-02-13 19:25] LABS: Appearance Urine Clear (Clear); Bilirubin Urine Negative (Negative); Blood Urine Negative (Negative); Color Urine Light Yellow (Yellow); Glucose Urine UA Negative (Negative); Ketones Urine Negative (Negative); Leukocyte Esterase Ur Negative (Negative); Nitrate Urine Negative (Negative); Protein Urine Negative (Negative); Specific Grav Ur <= 1.005 (1.010-1.020); Urobilinogen Urine 0.2 mg/dL (0.2-1.0); pH Urine 6.5 (5.0-8.0)
[2023-02-13 19:31] LABS: Add Urine Microscopic? NO
[2023-02-13 19:40] LABS: Hemoglobin A1C 4.7 % (<5.7)
[2023-02-13 19:45] LABS: Alanine Aminotransferase 19 U/L (16-63); Albumin Level 3.2 g/dL (3.4-5.0); Alkaline Phosphatase 97 U/L (46-116); Anion Gap 8 mmol/L (8-16); Aspartate Amino Transferase 14 U/L (15-37); Bilirubin,Total 0.3 mg/dL (0.00-1.00); Blood Urea Nitrogen 3 mg/dL (7-18); Calcium 8.6 mg/dL (8.5-10.1); Carbon Dioxide 29 mmol/L (21-32); Chloride 102 mmol/L (98-108); Cholesterol 158 mg/dL (0-200); Estimated Glomerular Filt Rate > 60; Glucose 95 mg/dL (70-99); HDL Direct 48 mg/dL (40-60); LDL Cholesterol Calculated 91 mg/dL (<130); Osmolality Calculated 284 mOsm/kg (285-295); Potassium 3.9 mmol/L (3.5-5.1); Sodium 139 mmol/L (136-145); Total Protein 6.8 g/dL (6.4-8.2); Triglycerides 94 mg/dL (0-150)
== END 2023-02-13 18:55 | disposition home or self-care (01) ==
LOC: CHSLAB 18:58
PROVIDERS: PCP Family Medicine
DX: Z79.899 Other long term (current) drug therapy (principal)
CPT/HCPCS: 36415; 80053; 80061; 81003; 83036; 84443; 85025

== ENCOUNTER 2023-03-19 18:24 | Emergency (ER) | payer MEDICARE, MEDICAID, SELFPAY ==
--- NOTE | ~2023-03-19 | XR_ITS ---
EXAMINATION: XR chest 2V Exam Date/Time: 03/19/2023 18:34 CDT HISTORY: RIGHT SIDE CP Comparison: 04/01/2022. RESULT: Lines, tubes, and devices: None. Lungs and pleura: Clear. Cardiomediastinal silhouette: Stable. Hiatal hernia. Other: No acute osseous or upper abdominal finding. Old, possibly nonunited left clavicular fracture . Multiple old left rib fractures. IMPRESSION: No acute cardiopulmonary process. Reviewed, dictated and finalized at location K.
--- NOTE | 2023-03-19 18:27 | ECG_ITS ---
Measurements Intervals [place] Rate: 55 P: 28 [place]: 157 QRS: 19 QRSD: 106 T: 46 QT: 460 QTc: 440 Interpretive Statements SINUS BRADYCARDIA LOW QRS VOLTAGE IN PRECORDIAL LEADS BORDERLINE R WAVE PROGRESSION, ANTERIOR LEADS BORDERLINE ECG COMPARED TO ECG 09/15/2021 15:50:05 SINUS BRADYCARDIA NOW PRESENT Electronically Signed On 03-19-2023 20:11:56 CDT by Erick Tony D.O.
[2023-03-19 18:39] VITALS: BP 130/82; PULSE 62; RESP 20; TEMP 36.2; O2SAT 95
[2023-03-19 18:53] LABS: Hematocrit 42.2 % (40.0-54.0); Hemoglobin 14.1 g/dL (14.0-18.0); Mean Corpuscular HGB Conc 33.4 g/dL (32.0-36.0); Mean Corpuscular Hemoglobin 28.5 pg (27.0-31.0); Mean Corpuscular Volume 85.3 fL (78.0-102.0); Mean Platelet Volume 11.6 fl (8.7-11.0); Platelet Count Result 219 K/mm3 (150-420); Red Blood Count 4.95 M/mm3 (4.70-6.10); Red Cell Distribution Width 12.6 % (11.6-14.4); White Blood Count 6.9 K/mm3 (4.8-10.8)
[2023-03-19 19:13] LABS: Albumin Level 3.1 g/dL (3.4-5.0); Alkaline Phosphatase 126 U/L (46-116); Anion Gap 6 mmol/L (8-16); Aspartate Amino Transferase 13 U/L (15-37); Bilirubin,Total 0.2 mg/dL (0.00-1.00); Blood Urea Nitrogen 4 mg/dL (7-18); Calcium 8.7 mg/dL (8.5-10.1); Carbon Dioxide 30 mmol/L (21-32); Chloride 101 mmol/L (98-108); Estimated CRCL calculation 91 ml/min; Estimated Glomerular Filt Rate > 60; Glucose 89 mg/dL (70-99); Lipase 24 U/L (16-77); Osmolality Calculated 279 mOsm/kg (285-295); Potassium 3.6 mmol/L (3.5-5.1); Sodium 137 mmol/L (136-145); Total Protein 7.5 g/dL (6.4-8.2); Troponin I 4.5 ng/L (0.00-60.4)
[2023-03-19 19:15] LABS: Alanine Aminotransferase < 6 U/L (16-63)
[2023-03-19 19:19] LABS: Band Neutrophils Percent 0 % (0-6); Lymphocytes Absolute Manual 1.79 K/mm3 (1.1-4.5); Lymphocytes Percent Manual 26 % (18-44); Neutrophils Absolute Manual 4.27 K/mm3 (1.3-6.7); Neutrophils Percent Manual 62 % (46-73); Total Cells Counted 100
[2023-03-19 19:20] LABS: Basophils Absolute Manual 0.06 K/mm3 (0-0.1); Basophils Percent Manual 1 % (0-1); Eosinophils Absolute Manual 0.34 K/mm3 (0.02-0.5); Eosinophils Percent Manual 5 % (1-6); Monocytes Absolute Manual 0.41 K/mm3 (0.1-0.90); Monocytes Percent Manual 6 % (3-9); Platelet Estimate Adequate (Adequate)
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
[2023-03-19 19:55] VITALS: BP 127/97; PULSE 60; RESP 16; TEMP 36.4; O2SAT 98
== END 2023-03-19 19:58 | disposition home or self-care (01) ==
LOC: CHSED 19:53
PROVIDERS: Emergency Provider Emergency Medicine; PCP Family Medicine
DX: R07.89 Other chest pain (principal); F17.210 Nicotine dependence, cigarettes, uncomplicated; Z79.899 Other long term (current) drug therapy; V18.0XXA Pedal cycle driver injured in noncollision transport accident in nontraffic accident, initial encounter; Y92.410 Unspecified street and highway as the place of occurrence of the external cause
CPT/HCPCS: 36415; 71046; 80053; 83690; 84484; 85025; 93005; 99284